=== PATIENT | male | born 1940 | race Caucasian/White ===

== ENCOUNTER 2018-04-14 12:56 | Outpatient (RCR) ==
[2018-04-17 12:26] VITALS: TEMP 208; BMI 20.9
[2018-05-10 14:04] VITALS: BP 112/58
== END 2018-05-11 23:59 ==
LOC: CAR.REHAB 12:56
PROVIDERS: ATTEND Internal Medicine
DX: Z95.1 Presence of aortocoronary bypass graft (principal)
CPT/HCPCS: 93798

== ENCOUNTER 2018-05-12 06:57 | Outpatient (RCR) ==
[2018-06-09 14:49] VITALS: BP 120/54
== END 2018-06-11 23:59 ==
LOC: CAR.REHAB 06:57
PROVIDERS: ATTEND Internal Medicine
DX: Z95.1 Presence of aortocoronary bypass graft (principal)
CPT/HCPCS: 93798

== ENCOUNTER 2018-06-12 08:55 | Outpatient (RCR) ==
[2018-07-10 14:24] VITALS: BP 120/52
== END 2018-07-11 23:59 ==
LOC: CAR.REHAB 08:55
PROVIDERS: ATTEND Internal Medicine
DX: Z95.1 Presence of aortocoronary bypass graft (principal)
CPT/HCPCS: 93798

== ENCOUNTER 2018-07-14 12:31 | Outpatient (RCR) ==
[2018-08-11 13:32] VITALS: BP 112/54
== END 2018-08-11 23:59 ==
LOC: CAR.REHAB 12:31
PROVIDERS: ATTEND Internal Medicine
DX: I25.810 Atherosclerosis of coronary artery bypass graft(s) without angina pectoris (principal)
CPT/HCPCS: 93797

== ENCOUNTER 2018-10-12 09:07 | Outpatient (RCR) ==
[2018-11-10 13:35] VITALS: BP 124/56
== END 2018-11-11 23:59 ==
LOC: CAR.REHAB 09:07
PROVIDERS: ATTEND Internal Medicine
DX: I25.810 Atherosclerosis of coronary artery bypass graft(s) without angina pectoris (principal)
CPT/HCPCS: 93797